=== PATIENT | female | born 1985 | race Caucasian/White ===

== ENCOUNTER 2017-01-05 22:17 | Emergency (ER) | payer MEDICAID, OTHER ==
[~2017-01-05] VITALS: Ht 160 cm; Wt 95.0 kg
[~2017-01-05 22:17] MED LIST: FAMO-18 PO
[2017-01-05 23:34] VITALS: Ht 160 cm; Wt 95.0 kg
[2017-01-06] MEDS ORDERED: morphine 4 MG/ML VIAL IV STA (00:06)
[2017-01-06] MEDS ORDERED: ONDANSETRON 4 MG INJ IV STA (00:06)
[2017-01-06] MEDS ORDERED: SOD CHLORIDE 0.9% 1,000 ML IV STA (00:06)
[2017-01-06 01:05] LABS: ADD SCAN DIFF NO
[2017-01-06 01:06] LABS: BASOPHIL # 0.1 10^3/ul (0.0-0.1); BASOPHILS % 0.4 % (0.0-2.0); EOSINOPHILS # 0.3 10^3/ul (0.0-0.5); EOSINOPHILS % 2.2 % (0.0-7.0); HEMATOCRIT 41.5 % (37.0-47.0); LYMPHOCYTES # 3.4 10^3/ul (0.8-2.9); LYMPHOCYTES % 28.7 % (15.0-51.0); MEAN CORPUSCULAR HEMOGLOBIN 25.3 pg (29.0-33.0); MEAN CORPUSCULAR HGB CONC 31.3 g/dl (32.0-37.0); MEAN CORPUSCULAR VOLUME 80.7 fl (82.0-101.0); MEAN PLATELET VOLUME 9.1 fl (7.4-10.4); MONOCYTE # 0.8 10^3/ul (0.3-0.9); MONOCYTES % 6.8 % (0.0-11.0); NEUTROPHIL # 7.3 10^3/ul (1.6-7.5); NEUTROPHILS % 61.5 % (39.0-77.0); PLATELET COUNT 652 10^3/UL (140-415); RED BLOOD COUNT 5.14 10^6/ul (4.20-5.40); RED CELL DISTRIBUTION WIDTH 14.3 % (11.5-14.5); WHITE BLOOD COUNT 11.8 10^3/ul (4.8-10.8)
[2017-01-06 01:21] LABS: ADD UMIC NO; UR BILIRUBIN (Dip) NEGATIVE (NEGATIVE); UR BLOOD (Dip) NEGATIVE (NEGATIVE); UR CLARITY CLEAR (CLEAR); UR COLOR LT. YELLOW (YELLOW); UR GLUCOSE (Dip) NEGATIVE (NEGATIVE); UR KETONES (Dip) NEGATIVE (NEGATIVE); UR LEUKOCYTE ESTERASE (Dip) NEGATIVE (NEGATIVE); UR NITRITE (Dip) NEGATIVE (NEGATIVE); UR TOTAL PROTEIN (Dip) NEGATIVE (NEGATIVE); UR UROBILINOGEN (Dip) 0.2 E.U./dL (0.1-1.0)
[2017-01-06 01:25] LABS: ALBUMIN 4.9 g/dl (3.3-4.9); ALBUMIN/GLOBULIN RATIO 1.28; BILIRUBIN,INDIRECT 0.1 mg/dl (0-1.1); BILIRUBIN,TOTAL 0.1 mg/dl (0.2-1.3); CALCIUM 9.6 mg/dl (8.4-10.2); CREATININE 0.64 mg/dl (0.44-1.00); TOTAL PROTEIN 8.7 g/dl (6.1-8.1)
[2017-01-06] MEDS ORDERED: KETOROLAC 30 MG INJ IV STA (01:26)
--- NOTE | 2017-01-06 01:59 | RADRPT ---
PROCEDURE: CT Abdomen and pelvis without contrast. CLINICAL INDICATION: Abdominal pain. TECHNIQUE: CT scan of the abdomen and pelvis was performed on a multi-detector high-resolution CT scanner. Contiguous axial images were obtained from the lung bases to the ischial tuberosities wit hout intravenous contrast. Coronal and sagittal reformatted images were also obtained. Images were reviewed on the PACS workstation. One or more of the following dose reduction techniques were used: - Automated exposure control. - Adjustment of the mA and/or kV according to patient size. - Use of iterative reconstruction technique. Exam CTD/vol = 20.70 mGy. Total exam DLP = 1299.89 mGy-cm. COMPARISON: None. FINDINGS: Evaluation of the lung bases demonstrates minimal bibasilar atelectasis. Abdomen: The liver is normal in size. There is no focal mass or dilatation of the biliary tree. T he gallbladder is not distended. The spleen, pancreas and bilateral adrenal glands are within yaa l limits. Bilateral kidneys are normal in size with no contour deforming mass identified. There is no radiopaque renal or ureteral calculus identified. There is no hydronephrosis or hydroureter. T here is no retroperitoneal adenopathy. The abdominal aorta is of normal caliber. There is no abnormal bowel wall thickening or distension. There is no bowel obstruction or free air . A normal appendix is identified. There there are scattered diverticuli within the descending and sigmoid colon without evidence of diverticulitis. There is no ascites. Pelvis: The bladder is unremarkable. The uterus and adnexa are within normal limits. There is no significant pelvic adenopathy or free fluid. Evaluation of the osseous structures demonstrates no suspicious lytic or blastic lesion. IMPRESSION: No acute abnormality identified within the abdomen and pelvis. Scattered colonic diverticuli without evidence of diverticulitis. .Luigi Killian MD, MD Date Time Electronically viewed and signed by .Luigi Killian MD, MD on 01/06/2017 01:58 .T/
[2017-01-06] MEDS ORDERED: HYDR-906 PO ×2 (02:02→02:22)
--- NOTE | 2017-01-06 02:02 | RADRPT ---
PROCEDURE: XR Chest. CLINICAL INDICATION: Abdominal pain TECHNIQUE: Portable single view of the chest COMPARISON: 05/19/2016 FINDINGS: Shallow lung inflation accentuates the heart size which is likely within normal limits. No acute in filtrate, pleural effusion, or overt congestive heart failure is seen. Slight bibasilar crowding. IMPRESSION: Shallow lung inflation with slight bibasilar crowding. RPTAT: HLBE Chelsey Valdes Physician Date Time Electronically viewed and signed by Chelsey Valdes, Physician on 01/06/2017 02:01 CHRISTINA/
[2017-01-06] MEDS ORDERED: FAMO-18 PO ×2 (02:03→02:22)
[2017-01-06] MEDS ORDERED: ONDA-43 PO (02:03)
--- NOTE | 2017-01-06 02:08 | ERD ---
ER Documentation Chief Complaint Date/Time DATE: 01/06/17 TIME: 02:07 Chief Complaint ONGOING LEFT SIDED ABD PAIN, NAUSEA, VOMITING X 3 DAYS, FEVER HPI This is a 31 y/o female that presents to the ER with multiple complaints. Patient has had abdominal pain since April. Over the last 3 days abdominal pain has worsened. It is located in the LUQ and radiates to the left side of her chest, shoulder and neck. Patient states that touching the area, sneezing, or movement makes the pain worse. Patient admits to nausea and vomiting. Vomiting is non bilious non bloody. She denies any diarrhea. Patient denies any SOB. Patient also admit to intermittent epigastric pain that is described as a burning sensation. She admits to a fever yesterday which was controlled with Tylenol. Patient denies any urinary frequency or dysuria. She denies any melena. She denies any leg pain, redness or swelling. She denies any recent travel or sick contacts at home. Patient denies any trauma. ROS All systems reviewed and are negative except as per history of present illness. Medications Home Meds Active Scripts Hydrocodone/Acetaminophen ([place] 5-325 Tablet) 1 Each Tablet, 1 TAB PO Q6H Y for PAIN, #20 TAB Prov:MARION MATHEW PA-C 01/06/17 Famotidine* (Pepcid*) 20 Mg Tablet, 20 MG PO BID for 4 Days, TAB Prov:MARION MATHEW PA-C 01/06/17 Ondansetron (Ondansetron Odt) 4 Mg Tab.rapdis, 4 MG PO Q6H Y for NAUSEA AND/OR VOMITING, #10 TAB Prov:MARION MATHEW PA-C 01/06/17 Famotidine* (Pepcid*) 20 Mg Tablet, 20 MG PO BID for 15 Days, #30 TAB Prov:KWAKU FRANCO MD 05/19/16 Discontinued Scripts Ondansetron Hcl* (Zofran*) 4 Mg Tab, 4 MG PO Q4H Y for NAUSEA AND OR VOMITING for 3 Days, TAB Prov:DELVIN,AUGUSTINA C 01/06/17 Famotidine* (Pepcid*) 20 Mg Tablet, 20 MG PO BID for 14 Days, TAB Prov:DELVINAUGUSTINA C 01/06/17 Hydrocodone/Acetaminophen ([place] 5-325 Tablet) 1 Each Tablet, 1 TAB PO Q6H Y for PAIN, #20 TAB Prov:AUGUSTINA HARGROVE 01/06/17 Allergies Allergies: Coded Allergies: No Known Allergy (Unverified , 05/19/16) PMhx/Soc History of Surgery: No Anesthesia Reaction: No Hx Neurological Disorder: No Hx Respiratory Disorders: No Hx Cardiac Disorders: No Hx Psychiatric Problems: No Hx Miscellaneous Medical Probl: Yes (GI) Hx Alcohol Use: No Hx Substance Use: No Hx Tobacco Use: No Smoking Status: Never smoker Physical Exam Vitals Vital Signs Date Time Temp Pulse Resp B/P Pulse Ox O2 Delivery O2 Flow Rate FiO2 01/06/17 02:22 98.1 72 18 120/72 98 Room Air 01/05/17 23:34 99.8 88 18 143/9 98 Physical Exam Const: [] Head: Atraumatic Eyes: Normal Conjunctiva ENT: Normal External Ears, Nose and Mouth. Neck: Full range of motion..~ No meningismus. Resp: Clear to auscultation bilaterally Cardio: Regular rate and rhythm, no murmurs. patient is ttp over the left chest wall Abd: Soft, non tender, non distended. Normal bowel sounds Skin: No petechiae or rashes Back: No midline or flank tenderness Ext: Patient has full ROM of her left shoulder with no deformities or areas of echymosis. Neur: Awake and alert Psych: Normal Mood and Affect Result Diagram: 01/06/17 0040 01/06/17 0040 Results 24 hrs Laboratory Tests Test 01/06/17 00:40 White Blood Count 11.810^3/ul Red Blood Count 5.1410^6/ul Hemoglobin 13.0g/dl Hematocrit 41.5% Mean Corpuscular Volume 80.7fl Mean Corpuscular Hemoglobin 25.3pg Mean Corpuscular Hemoglobin Concent 31.3g/dl Red Cell Distribution Width 14.3% Platelet Count 63577^3/UL Mean Platelet Volume 9.1fl Neutrophils % 61.5% Lymphocytes % 28.7% Monocytes % 6.8% Eosinophils % 2.2% Basophils % 0.4% Nucleated Red Blood Cells % 0.0/100WBC Neutrophils # 7.310^3/ul Lymphocytes # 3.410^3/ul Monocytes # 0.810^3/ul Eosinophils # 0.310^3/ul Basophils # 0.110^3/ul Nucleated Red Blood Cells # 0.010^3/ul Urine Color LT. YELLOW Urine Clarity CLEAR Urine pH 6.0 Urine Specific [place] 1.020 Urine Ketones NEGATIVE Urine Nitrite NEGATIVE Urine Bilirubin NEGATIVE Urine Urobilinogen 0.2 E.U./dL Urine Leukocyte Esterase NEGATIVE Urine Hemoglobin NEGATIVE Urine Glucose NEGATIVE% Urine Total Protein NEGATIVE Sodium Level 145mmol/L Potassium Level 4.0mmol/L Chloride Level 111mmol/L Carbon Dioxide Level 20mmol/L Anion Gap 18 Blood Urea Nitrogen 10mg/dl Creatinine 0.64mg/dl Glucose Level 94mg/dl Calcium Level 9.6mg/dl Total Bilirubin 0.1mg/dl Direct Bilirubin 0.00mg/dl Indirect Bilirubin 0.1mg/dl Aspartate Amino Transf (AST/SGOT) 17IU/L Alanine Aminotransferase (ALT/SGPT) 35IU/L Alkaline Phosphatase 86IU/L Total Protein 8.7g/dl Albumin 4.9g/dl Globulin 3.80g/dl Albumin/Globulin Ratio 1.28 Lipase 94U/L Current Medications Medications (Trade) Dose Ordered Sig/Haroldo Route PRN Reason Start Time Stop Time Status Last Admin Dose Admin Sodium Chloride (NS) 1,000 ml @ 1,000 mls/hr Q1H STAT IV 01/06/17 00:06 01/06/17 01:05 DC 01/06/17 00:31 Morphine Sulfate (morphine) 6 mg ONCE STAT IV 01/06/17 00:06 01/06/17 00:10 DC 01/06/17 00:31 Ondansetron HCl (Zofran Inj) 4 mg ONCE STAT IV 01/06/17 00:06 01/06/17 00:10 DC 01/06/17 00:32 Ketorolac Tromethamine (Toradol) 30 mg ONCE STAT IV 01/06/17 01:26 01/06/17 01:27 DC 01/06/17 01:34 Procedures/MDM EKG was done [address] elevation or T-wave inversion. Differential Diagnosis: GERD, cholecystics, choledocholithiasis, pancreatitis, intraabdominal abscess, pleuritis, acute [place], pulmonary embolism, pneumothorax, AAA, Borhave's, endocarditis, pericarditis. This is a 31 y/o female with LUQ pain that has been going for the last few months and has been exacerbated over the last 3 days. There is no evidence of acute abdominal etiology on on CT scan or on laboratory examinations. Patient did have a slight elevation in white blood cells, however she is afebrile and well appearing in the ER, I doubt infectious etiology. Suspicion for cardiac etiology is low as EKG was normal and there was no murmurs or friction rub on physical examination. Patient does not have any PERC criteria. She is not hypoxic or in any respiratory distress. Patient will be sent home with [place] for her pain and Zofran for vomiting. She is not dehydrated and is able to tolerate PO fluids. Patient is stable for outpatient follow up. I advised patient to follow up with a GI doctor for possible endoscopy as this has been going for months now and may need further treatment. Patient needs to f/u with her PCP within 1-2 days or return to ER sooner if symptoms worsen. My medical decision making was shared with the patient she understands and agrees with plan. Departure Diagnosis: Primary Impression: Multiple complaints Condition: Stable Patient Instructions: Abdominal Pain, Unknown Cause, (Female) Additional Instructions: Call your primary care doctor TOMORROW for an appointment during the next 1-2 days.See the doctor sooner or return here if your condition worsens before your appointment time. AUGUSTINA HARGROVE Jan 06, 2017 02:08
[2017-01-06 02:22] VITALS: BP 120/72; PULSE 72; RESP 18; TEMP 98.1
[2017-01-06] MEDS ORDERED: ONDA4TAB14 PO (02:22)
== END 2017-01-06 02:22 | disposition home or self-care (01) ==
LOC: FTE 22:17
DX: R10.12 Left upper quadrant pain (principal); R11.2 Nausea with vomiting, unspecified; R50.9 Fever, unspecified; R10.13 Epigastric pain
CPT/HCPCS: 36415; 71010; 74176; 80053; 81003; 83690; 85025; 93005; 96374; 96375; J1885; J2270; J2405; J7030; Z7502